=== PATIENT | female | born 1960 | race Caucasian/White ===

== ENCOUNTER 2021-04-12 00:45 | Inpatient (IN) | payer OTHER ==
[2021-04-12] MEDS ORDERED: dilTIAZem HCL 50 MG/10 ML - 10 ML VIAL IVPUSH ONE ×3 (01:20→03:44)
[2021-04-12 01:39] LABS: BASO % 0.4 % (0-2.0); EOS % 1.7 % (0-4.5); LYMPH % 49.5 % (8-40); MCHC 33.4 g/dl (32.0-36.0); MEAN PLT VOLUME 8.1 fl (7.5-11.1); MONO % 8.1 % (3.8-10.2); NEUT % 40.3 % (42.8-82.8); PLATELET COUNT 239 K/MM3 (134-434); RBC 5.17 M/mm3 (3.60-5.2); RDW 14.2 % (11.6-15.6); WHITE BLOOD COUNT 6.9 K/mm3 (4.0-10.0)
[2021-04-12] MEDS ORDERED: dilTIAZem HCL 30 MG TABLET PO ONE (01:54)
[2021-04-12 02:02] LABS: ALBUMIN 3.9 g/dl (3.4-5.0); BLOOD UREA NITROGEN 13.3 mg/dL (7-18)
[2021-04-12 02:06] LABS: CREATININE 0.7 mg/dL (0.55-1.3)
[2021-04-12 02:07] LABS: BILIRUBIN,TOTAL 0.3 mg/dL (0.2-1); TOT PROT 7.4 g/dl (6.4-8.2)
[2021-04-12] MEDS ORDERED: dilTIAZem HCL 30 MG TABLET ONE (02:17)
[2021-04-12] MEDS ORDERED: dilTIAZem HCL 125 MG/25 ML - 25 ML VIAL ONE (03:54)
[2021-04-12] MEDS ORDERED: SODIUM CHLORIDE 1,000 ML IV SCH (06:45)
[2021-04-12] MEDS ORDERED: ACETAMINOPHEN 325 MG TABLET (FP) PO PRN (06:45)
[2021-04-12 07:20] LABS: INR 0.88 (0.83-1.09); PROTHROMBIN TIME (PATIENT) 10.9 SEC (9.7-13.0)
[2021-04-12 07:41] LABS: MAGNESIUM 2.4 mg/dL (1.8-2.4)
[2021-04-12 07:43] LABS: CHOLESTEROL 217 mg/dL (50-200); TRIGLYCERIDES 202 mg/dL (0-150)
[2021-04-12 07:44] LABS: LDL CHOLESTEROL (ONLY SJRH) 134 mg/dL (5-100)
[2021-04-12 07:47] LABS: HDL CHOLESTEROL 43 mg/dL (40-60)
[2021-04-12] MEDS: ASPIRIN 81 MG CHEWABLE TABLETS PO SCH (09:10)
[2021-04-12 09:32] VITALS: BMI 36.0
[2021-04-12] MEDS ORDERED: PNEUMOC 13-VAL CONJ-DIP CRM/PF 0.5 ML DISP.SYRIN IM ONE (09:36)
[2021-04-12] MEDS ORDERED: ENOXAPARIN NA (PORCINE) 40 MG/0.4 ML DISP.SYRIN SQ SCH (10:00)
[2021-04-12] MEDS ORDERED: PNEUMOCOCCAL 23 VACCINE 0.5 ML VIAL IM ONE (11:00)
[2021-04-12] MEDS: APIXABAN 5 MG TABLET PO SCH ×2 (11:54→21:04)
[2021-04-12] MEDS: METOPROLOL TARTRATE 25 MG TABLET (FP) PO SCH ×2 (11:57→21:04)
[2021-04-12] MEDS ORDERED: ATORVASTATIN CA 20 MG TABLET (FP) PO SCH (22:00)
[2021-04-13] MEDS ORDERED: REGADENOSON 0.4 MG/5 ML PRE-FILLED SYRINGE IVPUSH ONE ×2 (09:58→10:00)
[2021-04-13] MEDS: APIXABAN 5 MG TABLET PO SCH (13:39)
[2021-04-13] MEDS: ASPIRIN 81 MG CHEWABLE TABLETS PO SCH (13:40)
[2021-04-13] MEDS: METOPROLOL TARTRATE 25 MG TABLET (FP) PO SCH (13:41)
[2021-04-13 18:48] VITALS: BP 151/80; PULSE 58; TEMP 98.9
== END 2021-04-13 19:59 | disposition home or self-care (01) | DRG 309 ==
LOC: JER 00:45 → JERBED 03:11 → J4S 09:00
PROVIDERS: ADMIT Internal Medicine; ATTEND Family Medicine
DX: I48.91 Unspecified atrial fibrillation (principal); I24.9 Acute ischemic heart disease, unspecified; E78.5 Hyperlipidemia, unspecified; E66.9 Obesity, unspecified; Z68.36 Body mass index [BMI] 36.0-36.9, adult
CPT/HCPCS: 36415; 71045-TC-FY; 78452-TC; 80053; 80061; 82550; 82553; 83036; 83721; 83735; 84443; 84484; 85025; 85610; 90732; 93005; 93010; 93017; 93306-TC; 99285-25; A9502; C9803; G0009; J2785; U0003; U0005